=== PATIENT | female | born 1960 | race Caucasian/White ===

== ENCOUNTER 2020-02-27 04:42 | Emergency (ER) | payer OTHER ==
[~2020-02-27] VITALS: Ht 170.2 cm; Wt 87.0 kg
[2020-02-27] MEDS ORDERED: KETOROLAC 60MG/2ML VIAL IM STA (05:10)
[2020-02-27] MEDS ORDERED: MORPHINE SULFATE 4 MG/ML CPJ (NOT FOR IM USE) IV NR (07:09)
[2020-02-27] MEDS ORDERED: ONDANSETRON HCL 4MG/2ML INJ IV NR (07:10)
[2020-02-27 07:22] LABS: BASOPHILS % 0.6 % (0.0-2.0); EOSINOPHILS % 0.3 % (0.0-5.0); HEMATOCRIT. 46.4 % (36.0-48.0); HEMOGLOBIN. 15.9 g/dL (12.0-16.0); LYMPHOCYTES % 19.7 % (20.0-50.0); MEAN CORPUSCULAR HEMOGLOBIN 30.5 pg (28.0-32.0); MEAN CORPUSCULAR VOLUME 88.9 fL (81.0-99.0); MEAN PLATELET VOLUME 7.9 fl (7.4-10.4); MONOCYTES % 5.1 % (2.0-8.0); NEUTROPHILS % 74.3 % (40.0-76.0); PLATELET 279 x1000/uL (130-400); RED BLOOD CELL COUNT 5.21 mill/uL (4.2-5.4); RED CELL DISTRIBUTION WIDTH 13.4 % (11.6-14.6)
[2020-02-27 07:29] LABS: CHLORIDE 107 mEq/L (98-107)
[2020-02-27] MEDS ORDERED: IOHEXOL-350 100 ML BOTTLE ONE (09:21)
[2020-02-27] MEDS ORDERED: DIATR MEGLU/DIATRIZOATE SOLN 30ML ONE (09:21)
[2020-02-27] MEDS ORDERED: IOHEXOL-300 100 ML BOTTLE ONE (09:23)
[2020-02-27 09:56] LABS: CLARITY URINE CLEAR (CLEAR); COLOR URINE YELLOW (YELLOW); KETONES URINE NEGATIVE (NEGATIVE); LEUKOCYTE ESTERASE URINE NEGATIVE (NEGATIVE); NITRITE URINE NEGATIVE (NEGATIVE); OCCULT BLOOD URINE NEGATIVE (NEGATIVE); PROTEIN URINE NEGATIVE (NEGATIVE); SPECIFIC GRAVITY URINE 1.018 (1.005-1.030); UROBILINOGEN URINE 0.2 E.U./dL (0.2-1.0)
[2020-02-27 11:34] VITALS: BP 135/78
== END 2020-02-27 12:47 | disposition home or self-care (01) ==
LOC: ER 04:42
DX: G89.29 Other chronic pain (principal); M25.551 Pain in right hip; R10.9 Unspecified abdominal pain; Z90.49 Acquired absence of other specified parts of digestive tract
CPT/HCPCS: 36415; 71045; 72100; 73502; 74177; 80053; 81003; 83690; 85025; 85379; 96372; 96374; 96375; 99285; J1885; J2270; J2405; Q9967; Q9963